=== PATIENT | male | born 1960 | race Caucasian/White ===

== ENCOUNTER 2020-12-04 08:02 | Outpatient (CLI) | payer MEDICARE, SELFPAY ==
--- NOTE | 2020-12-04 08:08 | ECG_ITS ---
Measurements Intervals [place] Rate: 78 P: 42 VA: 188 QRS: 42 QRSD: 108 T: 50 QT: 356 QTc: 408 Interpretive Statements SINUS RHYTHM INCOMPLETE RIGHT BUNDLE BRANCH BLOCK BASELINE ARTIFACT- I, III, AVR, AVL BORDERLINE ECG Electronically Signed On 12-04-2020 8:45:35 CDT by Mino Garduno D.O.
[2020-12-04 08:32] LABS: Basophils Absolute Auto 0.1 K/mm3 (0.0-0.1); Basophils Percent Auto 1.4 % (0.2-1.2); Eosinophils Absolute Auto 0.2 K/mm3 (0-0.3); Eosinophils Percent Auto 2.7 % (0-4.4); Hematocrit 49.2 % (42.0-52.0); Hemoglobin 16.6 g/dL (14.0-18.0); Immature Granulocyte Absolute 0.01 K/mm3 (0.00-0.031); Immature Granulocyte Percent A 0.2 % (0-0.5); Lymphocytes Absolute Auto 1.79 K/mm3 (0.9-3.2); Lymphocytes Percent Auto 27.9 % (18.3-44.2); Mean Corpuscular HGB Conc 33.7 g/dl (32-36); Mean Corpuscular Hemoglobin 30.3 pg (26-34); Mean Corpuscular Volume 89.8 fl (80-100); Mean Platelet Volume 9.5 fl (7.4-10.4); Monocytes Absolute Auto 0.5 K/mm3 (0.1-0.6); Monocytes Percent Auto 8.4 % (2.6-8.5); Neutrophils Absolute Auto 3.8 K/mm3 (1.3-6.7); Neutrophils Percent Auto 59.4 % (45.5-73.1); Platelet Count Result 219 k/mm3 (150-375); Red Blood Count 5.48 M/mm3 (4.6-6.20); Red Cell Distribution Width 13.4 % (11.5-14.5); White Blood Count 6.4 K/mm3 (4.5-10.0)
[2020-12-04 08:43] LABS: Anion Gap 6 mmol/L (8-16); Blood Urea Nitrogen 15 mg/dL (9-20); Calcium 8.3 mg/dL (8.4-10.2); Carbon Dioxide 26 mmol/L (22-30); Chloride 107 mmol/L (98-107); Estimated Glomerular Filt Rate > 60; Glucose 136 mg/dL (75-110); Potassium 4.2 mmol/L (3.4-5.0); Sodium 139 mmol/L (137-145)
[2020-12-04 08:45] LABS: INR 0.9; Prothrombin Time 13.2 Seconds (11.1-14.7)
[2020-12-04 08:46] LABS: Partial Thromboplastin Time 27.4 SECONDS (22.3-36.8)
== END 2020-12-04 08:03 | disposition home or self-care (01) ==
LOC: ANHSURGERY 08:08
PROVIDERS: PCP Family Medicine; Visit Provider Urology
DX: C67.9 Malignant neoplasm of bladder, unspecified (principal); F17.200 Nicotine dependence, unspecified, uncomplicated; Z01.818 Encounter for other preprocedural examination; I45.10 Unspecified right bundle-branch block
CPT/HCPCS: 36415; 80048; 85025; 85610; 85730; 87086; 93005

== ENCOUNTER → 2020-12-05 01:01 | Outpatient (CLI) | payer MEDICARE, SELFPAY ==
[2020-12-05 18:52] LABS: SARS-CoV-2 RNA PCR Negative
== END ==
PROVIDERS: PCP Family Medicine; Visit Provider Urology
DX: Z01.812 Encounter for preprocedural laboratory examination (principal); Z20.822 Contact with and (suspected) exposure to COVID-19
CPT/HCPCS: C9803; U0003; U0005

== ENCOUNTER 2020-12-08 02:59 | Day surgery (SDC) | payer MEDICARE, SELFPAY ==
[2020-12-01 09:19] VITALS: BMI 31.0
[2020-12-08] VITALS (8 sets, daily range): BP systolic 93–155; BP diastolic 60–94; PULSE 59–71; RESP 11–14; TEMP 36.2; O2SAT 96–99
[2020-12-08] MEDS: LACTATED RINGERS 1,000 ML 30 ML IV CONT ×2 (11:00→14:00)
--- NOTE | 2020-12-08 11:19 | WPDHPUPDATE1 ---
History and Physical Update Update Date/Time: 12/08/20 11:19 History and Physical has been reviewed, including an updated exam of the patient. There are NO changes in the patient's condition. Risks, benefits, and alternatives have been discussed and questions answered. Patient agrees to proceed with procedure.
--- NOTE | 2020-12-08 12:18 | WPDANESEPPF ---
Anes - Initial Pre Proc Eval Procedure: Operation Date: 12/08/20 12:30 Proposed Procedures p Trans Urethral Resection Bladder Tumor - Patrick Sanchez MD s Cystoscopy, Bladder Biopsy, Uretheral Dilation, Possible Retrograde Urethrogram - Patrick Sanchez MD Date/Time: 12/08/20 12:18 Surgeon: Patrick Sanchez MD Pre Op Diagnosis: bladder CA Patient Data Age: 60 Gender: M Height: 5 ft 7 in Weight: 82.5 kg Allergies Allergy/AdvReac Type Severity Reaction Status Date / Time Penicillins Allergy Unknown Unknown Verified 12/08/20 10:53 Home Medications Medication Instructions Recorded Confirmed Type aspirin [Adult Aspirin] 81 mg PO DAILY 12/01/20 12/08/20 History baclofen 10 mg PO QID 12/01/20 12/08/20 History gabapentin 400 mg PO TID 12/01/20 12/08/20 History tramadol 50 mg PO TID 12/01/20 12/08/20 History Patient hx anesthesia problems: none Family hx anesthesia problems: none PMFSH Past Medical History Medical History Bladder cancer DRISS (obstructive sleep apnea) Tobacco abuse Family History Family History Other Family history of cardiovascular disease Social History Social History Smoking packs per day: 1 Smoking cigarettes per day: 20.0 Years smoked: 48 Smoking pack-years: 48.00 Smoking status: Current every day smoker Tobacco type: cigarettes Alcohol intake: current Alcohol use details: ONCE EVERY COUPLE MONTHS Substance use: current Substance use type: marijuana Last use: 11/26/20 Living arrangements: with family Spiritual care concerns: No Anes - Eval Final PreProcedure Day of Procedure 12/08/20 12:18 Patient weight: overweight Heart: regular rate and rhythm Lungs: decreased breath sounds Airway: Mallampati scale class II Neurological: alert and oriented Last oral intake: >/= 8 hours ASA classification: III Emergent: no Anesthetic plan: proceed Anesthesia type and monitoring: general LMA and standard monitoring Informed Consent: The patient's anesthetic plan and its attendant risks and benefits were discussed with the patient/family/POA. Questions were solicited and answers provided to the satisfaction of the patient/family/POA.
[2020-12-08] MEDS: ceFAZolin 2 GM/D5W 50 ML 2 GM/50 ML BAG IVPB (12:58)
[2020-12-08] MEDS: LIDOCAINE HCL 2% GEL UROJET 10 ML PKG MUCOUS MEM (13:08)
--- NOTE | 2020-12-08 13:36 | P.OP_ITS ---
Procedure Note - Detailed Date of procedure: 12/08/20 Pre-op diagnosis: bladder CA Post-op diagnosis: same Procedure performed: Cysto with transurethral section of bladder tumor medium size approximately 3-3.5 cm, transurethral resection of prostate as tumor extended to right lobe Description of procedure: Patient is taken to the operative suite and correctly identified. Once anesthesia was obtained he was placed in dorsal lithotomy posi tion and prepped and draped usual sterile fashion. Twenty-two Czech scope was inserted into the urethra. There is no evidence of any urethral strictures. Prostate appears to have been resected in the past primarily the left lobe. It was noted that there was a papillary growth extending into the prostatic urethral channel of extending from the bladder neck area from work around the 7 o'clock position to 1 o'clock position. We went ahead and resected this tumor and sent for analysis. There were no other tumors in the bladder. We then resected the prostatic channel primarily the right lobe were the tumor was extending. Hemostasis was then achieved using electrocautery. With sent the specimen separately. 2% viscous lidocaine was inserted urethra and a [address] This was connected to continuous bladder irrigation. His urine is clear in recovery room he will be discharged home with Hurtado catheter and have it removed in 2 days. If for some reason it appears somewhat bloody he will be admitted for CBI. They are to call for path results in a week's time. Anesthesia: GLMA Surgeon: Patrick Sanchez MD Drains: Yes Packing: No Pathology: yes Complications: No immediate complications Condition: stable Disposition: PACU
[2020-12-08] MEDS: fentaNYL CITRATE INJ (*CRX) 100 MCG/2 ML VIAL 25 MCG IV PUSH ×4 (14:00→14:15)
== END 2020-12-08 16:01 | disposition home or self-care (01) ==
PROVIDERS: PCP Family Medicine; Visit Provider Urology
PROC: 0TBB8ZZ Excision of Bladder, Via Natural or Artificial Opening Endoscopic (ICD-10-PCS; CPT 52235; principal; 2020-12-08 12:30)
PROC: (CPT 52352; 2020-12-08 12:30)
DX: C67.5 Malignant neoplasm of bladder neck (principal); N40.0 Benign prostatic hyperplasia without lower urinary tract symptoms; N26.1 Atrophy of kidney (terminal); G47.33 Obstructive sleep apnea (adult) (pediatric); Z79.82 Long term (current) use of aspirin; F17.210 Nicotine dependence, cigarettes, uncomplicated; F12.90 Cannabis use, unspecified, uncomplicated
CPT/HCPCS: 52235; 36415; 80048; 85025; 85610; 85730; 87086; 88305; 93005; C1769; C9803; J0690; J1100; J2250; J2405; J2704; J3010; J7120; U0003; U0005

== ENCOUNTER 2022-03-25 08:38 | Outpatient (CLI) | payer MEDICARE, SELFPAY ==
--- NOTE | ~2022-03-25 | XR_ITS ---
EXAMINATION: XR lumbar spine 2-3V DATE: 03/25/2022 09:12 INDICATION: Low back pain TECHNIQUE: Anteroposterior and lateral views of the lumbar spine, and cone-down lateral view of the l umbosacral junction were obtained. COMPARISON: None. FINDINGS: There are 2 mm of retrolisthesis of L4 on L5 and L5 on S1. The vertebral body heights are m aintained. There is no fracture. There is moderate loss of intervertebral disc space height throughou t the lumbar spine. Small degenerative osteophytes project from the anterior endplates of multiple ve rtebral bodies. There is moderate facet osteoarthritis of the lower lumbar spine. IMPRESSION: 1. Moderate to severe lumbar spondylosis without acute findings. Reviewed, dictated and finalized at location L.
== END 2022-03-25 08:39 | disposition home or self-care (01) ==
PROVIDERS: PCP Internal Medicine; Visit Provider Internal Medicine
DX: M54.40 Lumbago with sciatica, unspecified side (principal); G89.29 Other chronic pain; M47.816 Spondylosis without myelopathy or radiculopathy, lumbar region
CPT/HCPCS: 72100

== ENCOUNTER 2022-05-11 15:49 | Emergency (ER) | payer MEDICARE, SELFPAY ==
[2022-05-11] VITALS (11 sets, daily range): BP systolic 115–137; BP diastolic 66–87; PULSE 64–84; RESP 12–18; TEMP 36.8; O2SAT 97–100
--- NOTE | ~2022-05-11 | XR_ITS ---
EXAMINATION: XR chest 1V portable Exam Date/Time: 05/11/2022 16:13 CDT HISTORY: Syncope Comparison: None available. RESULT: Lines, tubes, and devices: None. Lungs and pleura: Minimal bibasilar scar/atelectasis, otherwise clear. Cardiomediastinal silhouette: Stable. Other: No acute osseous or upper abdominal finding. IMPRESSION: No acute cardiopulmonary process. Reviewed, dictated and finalized at location K.
--- NOTE | ~2022-05-11 | CT_ITS ---
EXAMINATION: CT brain wo con DATE: 05/11/2022 16:22 INDICATION: Syncope. Head injury. TECHNIQUE: Computed tomography (CT) of the head was performed without intravenous contrast. The mA wa s adjusted according to patient size. Iterative reconstruction technique was employed. The dose-lengt h product was 605.33 mGy-cm. COMPARISON: None FINDINGS: There is no intracranial hemorrhage, acute infarction, or abnormal intracranial mass lesion . The ventricles are normal in size. There is mild mucosal thickening in the paranasal sinuses. The o rbits are normal. The mastoid air cells are normal. IMPRESSION: 1. Normal brain. Reviewed, dictated and finalized at location A. IMPRESSION: 1. Normal brain.
--- NOTE | ~2022-05-11 | CT_ITS ---
EXAMINATION: CT cervical spine wo con DATE: 05/11/2022 16:27 INDICATION: Head trauma TECHNIQUE: Computed tomography (CT) of the cervical spine was performed without intravenous contrast. Automated exposure control and iterative reconstruction technique were employed. The dose-length pro duct was 542.23 mGy-cm. COMPARISON: None FINDINGS: Vertebral Body Alignment: Intact. Craniocervical and atlantoaxial alignment: Moderate degenerative change. Alignment intact. Osseous structures/fracture: No evidence of a lytic or blastic process in the visualized spine. No e vidence of acute fracture. Cervical soft tissues: The paraspinal soft tissues planes are maintained. Aortic arch calcification. Apical pleural scarring. Paraseptal and centrilobular emphysematous change. Degenerative changes: Multilevel severe degenerative disc disease. Severe right neural foraminal narr owing at C4-5 and C5-6. Multilevel facet arthropathy. No severe central canal narrowing. IMPRESSION: No acute fracture or traumatic malalignment in the cervical spine. Reviewed, dictated and finalized at location K.
--- NOTE | 2022-05-11 16:06 | ECG_ITS ---
Measurements Intervals [place] Rate: 64 P: 60 AK: 208 QRS: 51 QRSD: 113 T: 48 QT: 387 QTc: 401 Interpretive Statements SINUS RHYTHM INCOMPLETE RIGHT BUNDLE BRANCH BLOCK BORDERLINE ECG COMPARED TO ECG 12/04/2020 08:24:53 NO SIGNIFICANT CHANGES Electronically Signed On 05-11-2022 21:27:14 CDT by Mino Garduno D.O.
--- NOTE | 2022-05-11 16:06 | ED.GENADULT ---
HPI - General Adult General Chief complaint: Syncope Stated complaint: fall Time Seen by Provider: 05/11/22 15:51 History of Present Illness HPI narrative: 62-year-old male with past medical history of bladder CA, hypertension, dyslipidemia multiple back surgeries presents to our department for evaluation. Patient was sitting on a stool speaking with a friend when he began to feel lightheaded, lost consciousness and struck his head on the floor. Related Data Home Medications Medication Instructions Recorded Confirmed aspirin 81 mg tablet 81 mg PO DAILY 12/01/20 12/08/20 baclofen 10 mg tablet 10 mg PO QID 12/01/20 12/08/20 gabapentin 400 mg capsule 400 mg PO TID 12/01/20 12/08/20 tramadol 50 mg tablet 50 mg PO TID 12/01/20 12/08/20 Allergies Allergy/AdvReac Type Severity Reaction Status Date / Time Penicillins Allergy Unknown Unknown Verified 05/11/22 16:08 Review of Systems Review of Systems: CONSTITUTIONAL: Denies fever, chills, or sweats. EYES: Denies visual changes, redness, or discharge. ENT: Denies rhinorrhea, congestion, sore throat, or otalgia. CARDIOVASCULAR: Denies chest pain, palpitations, or edema. RESPIRATORY: Denies cough or dyspnea. GASTROINTESTINAL: Denies abdominal pain, nausea, vomiting, or diarrhea. GENITOURINARY: Denies dysuria or hematuria. SKIN: Denies rash or itching. MUSCULOSKELETAL: Denies back pain, joint pain, or myalgia. NEUROLOGIC: Denies headache, numbness, or weakness. PSYCHIATRIC: Denies anxiety or depression. [facility] Past Medical History Medical History Bladder cancer DRISS (obstructive sleep apnea) Tobacco abuse Family History Family History Other Family history of cardiovascular disease Social History Social History Smoking packs per day: 1 Smoking cigarettes per day: 20.0 Years smoked: 48 Smoking pack-years: 48.00 Smoking status: Current every day smoker Tobacco type: cigarettes Alcohol intake: current Alcohol use details: ONCE EVERY COUPLE MONTHS Substance use: current Substance use type: marijuana Last use: 11/26/20 Spiritual care concerns: No Exam Narrative: GENERAL: Well-appearing, well-nourished, and in no acute distress. HEAD: Normocephalic, multiple lacerations noted on left side of forehead and above left orbit EYES: PERRLA and EOMI. ENT: Nares clear, no rhinorrhea or epistaxis. Mucous membranes moist. NECK: Supple. CHEST: Clear to auscultation. No respiratory distress. HEART: Regular rate and rhythm. No murmur heard. Normal peripheral pulses. ABDOMEN: Soft, nontender, nondistended, normal active bowel sounds. EXTREMITIES: Normal range of motion. No edema. SKIN: Warm, dry, no rash. NEURO: No focal deficits. Alert and oriented x3. PSYCH: Normal mood and affect. Course Vital Signs Vital signs: Vital Signs Temperature 98.2 F 05/11/22 16:05 Pulse Rate 68 05/11/22 16:05 Respiratory Rate 18 05/11/22 16:05 Blood Pressure 124/68 05/11/22 16:05 Pulse Oximetry 99 05/11/22 16:05 Temperature 98.2 F 05/11/22 16:05 Pulse Rate 72 05/11/22 18:05 Respiratory Rate 16 05/11/22 18:05 Blood Pressure 137/87 05/11/22 17:46 Pulse Oximetry 97 05/11/22 18:05 Medical Decision Making MDM Narrative Medical decision making narrative: Cardiac work-up and head and C-spine CT imaging are grossly unremarkable. Patient is well-appearing and requesting discharge home. He has received IV fluid hydration and is stable for DC home. Vital Signs Vital Signs: Vital Signs Temperature 98.2 F 05/11/22 16:05 Pulse Rate 68 05/11/22 16:05 Respiratory Rate 18 05/11/22 16:05 Blood Pressure 124/68 05/11/22 16:05 Pulse Oximetry 99 05/11/22 16:05 Temperature 98.2 F 05/11/22 16:05 Pulse Rate 72 05/11/22 18:05 Respiratory Rate
[2022-05-11] MEDS: SODIUM CHLORIDE 0.9% IV 500 ML 999 ML IV CONT (17:21)
[2022-05-11 17:24] LABS: Basophils Absolute Auto 0.1 K/mm3 (0.0-0.1); Basophils Percent Auto 0.8 % (0.2-1.2); Eosinophils Absolute Auto 0.3 K/mm3 (0-0.3); Eosinophils Percent Auto 2.4 % (0-4.4); Hematocrit 48.8 % (42.0-52.0); Hemoglobin 16.3 g/dL (14.0-18.0); Immature Granulocyte Absolute 0.04 K/mm3 (0.00-0.031); Immature Granulocyte Percent A 0.3 % (0-0.5); Lymphocytes Absolute Auto 1.38 K/mm3 (0.9-3.2); Lymphocytes Percent Auto 11.6 % (18.3-44.2); Mean Corpuscular HGB Conc 33.4 g/dl (32-36); Mean Corpuscular Hemoglobin 30.6 pg (26-34); Mean Corpuscular Volume 91.6 fl (80-100); Mean Platelet Volume 9.7 fl (7.4-10.4); Monocytes Absolute Auto 0.8 K/mm3 (0.1-0.6); Monocytes Percent Auto 6.6 % (2.6-8.5); Neutrophils Absolute Auto 9.3 K/mm3 (1.3-6.7); Neutrophils Percent Auto 78.3 % (45.5-73.1); Platelet Count Result 191 k/mm3 (150-375); Red Blood Count 5.33 M/mm3 (4.6-6.20); Red Cell Distribution Width 13.5 % (11.5-14.5); White Blood Count 11.9 K/mm3 (4.5-10.0)
[2022-05-11 17:35] LABS: Alanine Aminotransferase 23 U/L (6-50); Albumin Level 3.9 g/dL (3.5-5.1); Alkaline Phosphatase 83 U/L (38-126); Anion Gap 9 mmol/L (8-16); Aspartate Amino Transferase 22 U/L (17-59); Bilirubin,Total 0.5 mg/dL (0.2-1.3); Blood Urea Nitrogen 26 mg/dL (9-20); Calcium 9.1 mg/dL (8.4-10.2); Carbon Dioxide 23 mmol/L (22-30); Chloride 105 mmol/L (98-107); Estimated CRCL calculation 46 ml/min; Estimated Glomerular Filt Rate 47; Glucose 133 mg/dL (65-110); Magnesium 2.4 mg/dL (1.6-2.3); Potassium 4.8 mmol/L (3.4-5.0); Sodium 137 mmol/L (137-145)
[2022-05-11 17:37] LABS: INR 1.1; Prothrombin Time 13.7 Seconds (11.1-14.7)
[2022-05-11 17:38] LABS: Partial Thromboplastin Time 24.9 SECONDS (22.3-36.8)
[2022-05-11 17:47] LABS: NT Pro B Type Natriuretic Pept 55 pg/mL (5-100); Troponin I < 0.012 ng/mL (0.000-0.034)
== END 2022-05-11 18:35 | disposition home or self-care (01) ==
PROVIDERS: Emergency Provider Emergency Medicine; PCP Internal Medicine
DX: R55 Syncope and collapse (principal); G47.33 Obstructive sleep apnea (adult) (pediatric); E78.5 Hyperlipidemia, unspecified; I10 Essential (primary) hypertension; Z85.51 Personal history of malignant neoplasm of bladder; F17.210 Nicotine dependence, cigarettes, uncomplicated; Z79.82 Long term (current) use of aspirin
CPT/HCPCS: 36415; 70450; 71045; 72125; 80053; 83735; 83880; 84484; 85025; 85610; 85730; 93005; 99284; J7040

== ENCOUNTER 2023-02-15 09:28 | Emergency (ER) | payer MEDICARE, SELFPAY ==
[2023-02-15 09:31] VITALS: BP 129/84; PULSE 96; RESP 17; TEMP 36.6; O2SAT 99
[2023-02-15 09:36] VITALS: PULSE 81
--- NOTE | 2023-02-15 09:40 | ED.ARRPALP ---
HPI - Arrhythmia/Palpitations General Chief Complaint: Arrhythmia/Palpitations Stated Complaint: New onset Afib Time Seen by Provider: 02/15/23 09:29 History of Present Illness HPI narrative: 63-year-old male here from his primary care doctor's office after they discovered he was in atrial fibrillation. Patient was at a routine follow-up today and had no complaints. His doctor noticed that he had an irregular heartbeat. EKG abdominal he was in atrial fibrillation with a rate in the 70s. Blood pressure was normal. He was then referred to the ED for further work-up. Patient has no chest pain, shortness of breath, fevers or chills, nausea or vomiting, weakness, syncope. He takes aspirin and metoprolol. He has a history of hypertension and smokes cigarettes. Related Data Home Medications Medication Instructions Recorded Confirmed baclofen 10 mg tablet 10 mg PO QID 12/01/20 12/08/20 gabapentin 400 mg capsule 400 mg PO TID 12/01/20 12/08/20 tramadol 50 mg tablet 50 mg PO TID 12/01/20 12/08/20 Allergies Allergy/AdvReac Type Severity Reaction Status Date / Time Penicillins Allergy Unknown Unknown Verified 02/15/23 09:37 Review of Systems Review of Systems: Gen.: Denies fevers or chills Eyes: Denies eye pain or visual change ENT: Denies congestion Respiratory: Denies shortness of breath or cough CV: Denies chest pain or palpitations GI: Denies abdominal pain nausea, emesis or diarrhea denies burning, urgency, frequency or hematuria Musculoskeletal: Denies back pain or muscle pain Neuro: Denies numbness, tingling, weakness or focal weakness Skin: Denies rash Except as documented, all other systems reviewed and negative FORMERLY [facility], 1928–1983 Past Medical History Medical History Bladder cancer DRISS (obstructive sleep apnea) Tobacco abuse Family History Family History Other Family history of cardiovascular disease Social History Social History Smoking packs per day: 1 Smoking cigarettes per day: 20.0 Years smoked: 48 Smoking pack-years: 48.00 Smoking status: Current every day smoker Tobacco type: cigarettes Alcohol intake: current Alcohol use details: ONCE EVERY COUPLE MONTHS Substance use: current Substance use type: marijuana Last use: 11/26/20 Living arrangements: with family Spiritual care concerns: No Exam Narrative: APPEARANCE: Well appearing, no pain in distress, well-nourished. Head: Normocephalic and atraumatic. EYES: PERRLA/EOMI, conjunctivae clear NOSE: No nasal drainage EARS: External ear normal in appearance THROAT: Oropharynx is clear. Mucous membranes are moist. NECK: Supple. No adenopathy, no masses. RESPIRATORY: Airway patent, respirations nonlabored. Clear to auscultation bilaterally, no rales, rhonchi, wheezing. CARDIOVASCULAR: Irregular rhythm. ABDOMINAL: Normoactive bowel sounds. Soft, nontender, nondistended. No rebound tenderness or guarding. MUSCULOSKELETAL: Extremities are warm and well-perfused. Moves all extremities well. No edema. NEURO: Normal speech. No focal neurologic deficits. SKIN: Skin is warm and dry. No rashes. PSYCHIATRIC: Normal affect/mood.. Course Vital Signs Vital signs: Vital Signs Temperature 98 F 02/15/23 09:31 Pulse Rate 96 02/15/23 09:31 Respiratory Rate 17 02/15/23 09:31 Blood Pressure 129/84 02/15/23 09:31 Pulse Oximetry 99 02/15/23 09:31 Oxygen Delivery Room Air 02/15/23 09:31 Temperature 98 F 02/15/23 09:31 Pulse Rate 82 02/15/23 10:48 Respiratory Rate 19 02/15/23 10:48 Blood Pressure 101/81 02/15/23 10:48 Pulse Oximetry 96 02/15/23 10:48 Oxygen Delivery Room Air 02/15/23 09:31 MDM - Arrhythmia/Palpitations MDM Narrative Medical decision making narrative: 63-year-old male sent from his primary's
--- NOTE | 2023-02-15 09:44 | ECG_ITS ---
Measurements Intervals [place] Rate: 94 P: [place]: 0 QRS: 49 QRSD: 107 T: 56 QT: 330 QTc: 413 Interpretive Statements ATRIAL FIBRILLATION INCOMPLETE RIGHT BUNDLE BRANCH BLOCK [90+ ms QRS DURATION, TERMINAL R IN V1/V2, 40+ ms S IN I/aVL/V4/V5/V6] ABNORMAL RHYTHM ECG COMPARED TO ECG 05/11/2022 15:56:55 ATRIAL FIBRILLATION NOW PRESENT Electronically Signed On 02-15-2023 19:53:10 CDT by Dominga Vogt M.D.
[2023-02-15 09:46] LABS: Basophils Absolute Auto 0.1 K/mm3 (0.0-0.1); Basophils Percent Auto 1.2 % (0.2-1.2); Eosinophils Absolute Auto 0.2 K/mm3 (0-0.3); Eosinophils Percent Auto 2.3 % (0-4.4); Hematocrit 54.1 % (42.0-52.0); Hemoglobin 18.1 g/dL (14.0-18.0); Immature Granulocyte Absolute 0.02 K/mm3 (0.00-0.031); Immature Granulocyte Percent A 0.2 % (0-0.5); Lymphocytes Absolute Auto 2.12 K/mm3 (0.9-3.2); Mean Corpuscular HGB Conc 33.5 g/dl (32-36); Mean Corpuscular Hemoglobin 30.4 pg (26-34); Mean Corpuscular Volume 90.8 fl (80-100); Mean Platelet Volume 9.7 fl (7.4-10.4); Monocytes Absolute Auto 0.8 K/mm3 (0.1-0.6); Monocytes Percent Auto 10.1 % (2.6-8.5); Neutrophils Absolute Auto 4.9 K/mm3 (1.3-6.7); Neutrophils Percent Auto 60.2 % (45.5-73.1); Platelet Count Result 204 k/mm3 (150-375); Red Blood Count 5.96 M/mm3 (4.6-6.20); Red Cell Distribution Width 13.2 % (11.5-14.5); White Blood Count 8.2 K/mm3 (4.5-10.0)
[2023-02-15 09:56] LABS: Alanine Aminotransferase 24 U/L (6-50); Albumin Level 4.2 g/dL (3.5-5.1); Alkaline Phosphatase 81 U/L (38-126); Anion Gap 7 mmol/L (8-16); Aspartate Amino Transferase 28 U/L (17-59); Bilirubin,Total 0.6 mg/dL (0.2-1.3); Blood Urea Nitrogen 20 mg/dL (9-20); Calcium 8.8 mg/dL (8.4-10.2); Carbon Dioxide 23 mmol/L (22-30); Chloride 107 mmol/L (98-107); Estimated CRCL calculation 71 ml/min; Estimated Glomerular Filt Rate > 60; Glucose 116 mg/dL (65-110); Magnesium 2.2 mg/dL (1.6-2.3); Potassium 4.7 mmol/L (3.4-5.0); Sodium 137 mmol/L (137-145)
[2023-02-15 10:05] LABS: Prothrombin Time 13.3 Seconds (11.1-14.7)
[2023-02-15 10:48] VITALS: BP 101/81; PULSE 82; RESP 19; O2SAT 96
== END 2023-02-15 10:50 | disposition home or self-care (01) ==
PROVIDERS: Emergency Provider Physician Assistant; PCP Internal Medicine
DX: I48.91 Unspecified atrial fibrillation (principal); G47.33 Obstructive sleep apnea (adult) (pediatric); F17.210 Nicotine dependence, cigarettes, uncomplicated; Z85.51 Personal history of malignant neoplasm of bladder; I45.10 Unspecified right bundle-branch block
CPT/HCPCS: 36415; 80053; 83735; 84443; 85025; 85610; 85730; 93005; 99283